=== PATIENT | female | born 1955 | race Two or more races ===

== ENCOUNTER 2021-01-28 13:40 | Outpatient (CLI) | payer OTHER | END 2021-01-28 13:47 | disposition home or self-care (01) | LOC: RAD 13:40 | DX: M54.00 Panniculitis affecting regions of neck and back, site unspecified (principal); M54.2 Cervicalgia; M19.90 Unspecified osteoarthritis, unspecified site; M54.41 Lumbago with sciatica, right side; M54.6 Pain in thoracic spine; M05.69 Rheumatoid arthritis of multiple sites with involvement of other organs and systems ==

== ENCOUNTER → 2021-02-17 | Outpatient (CLI) | payer OTHER | END | disposition home or self-care (01) | LOC: SONOGRAMA 07:17 → MAMO-SONO 07:30 | PROVIDERS: ATTEND Internal Medicine Gastroenterology | DX: R10.9 Unspecified abdominal pain (principal) ==

== ENCOUNTER → 2021-03-18 | Outpatient (CLI) | payer OTHER | END | disposition home or self-care (01) | LOC: SONOGRAMA 13:16 | DX: E04.2 Nontoxic multinodular goiter (principal) ==

== ENCOUNTER 2021-03-27 09:10 | Outpatient (CLI) | payer OTHER | END 2021-03-27 09:39 | disposition home or self-care (01) | LOC: MRI 09:10 | DX: M05.69 Rheumatoid arthritis of multiple sites with involvement of other organs and systems (principal); G43.009 Migraine without aura, not intractable, without status migrainosus; E11.9 Type 2 diabetes mellitus without complications | CPT/HCPCS: 70551 ==

== ENCOUNTER 2021-05-09 08:05 | Outpatient (CLI) | payer OTHER | END 2021-05-09 08:21 | disposition home or self-care (01) | LOC: RAD 08:05 | DX: I70.0 Atherosclerosis of aorta (principal); J98.4 Other disorders of lung ==

== ENCOUNTER 2021-05-14 07:29 | Outpatient (CLI) | payer OTHER | END 2021-05-14 07:41 | disposition home or self-care (01) | LOC: MRI 07:29 | DX: M25.461 Effusion, right knee (principal); S83.211A Bucket-handle tear of medial meniscus, current injury, right knee, initial encounter; I10 Essential (primary) hypertension | CPT/HCPCS: 71270; 73721; Q9965; 73718 ==